=== PATIENT | male | born 1960 | race African-American/Black ===

== ENCOUNTER → 2019-08-15 | Outpatient (CLI) | payer MEDICARE ==
[~2019-08-15] MED LIST: IOHEXOL 180 MG/ML 10 ML VIAL. ONE; OXYC15TA PO; methylPREDNISolone ACETATE 40 MG/ML VIAL. ONE; methylPREDNISolone ACETATE 80 MG/ML VIAL. ONE
--- NOTE | 2019-08-15 13:21 | PAIN ---
DATE OF SERVICE: 08/15/2019 INITIAL CONSULTATION FOR PAIN CLINIC CHIEF COMPLAINT: Low back and right lower extremity pain. HISTORY OF PRESENT ILLNESS: This is a 59-year-old male who presents with history of pain in the low back, into the right hip and leg, mostly in the gluteus and thigh. The patient reports it has been going on for several years. He had physical therapy about 2-3 years ago, which was not significantly helpful and it has been basically putting up with the pain at work until he retired. The patient reports now the pain is becoming more noticeable, worse with walking, standing, changing positions, better with sitting or lying down. It generally does not awaken him from sleep at night, but can up to 3 times if he lies on his right side. The patient reports it does not affect his bowel or bladder control, does affect his ability to walk significantly but not using any assistive devices. He is favoring his right leg. The patient is taking oxycodone 15 mg once daily, which reports it does decrease the pain by about 50%, was able to perform his activities of daily living with much greater ease and comfort. The patient reports the pain is sharp and stabbing across the low back radiating and shooting into the right hip and lower extremity. The patient rates his disability rating from 0-10, 10 being at worst, is a 5 with family home responsibilities, 7 with recreation and social activity, occupation and sexual behavior, self-care and life support activities. The patient had MRI scan of the lumbar spine showing asymmetric disk bulges throughout the L2-L3, L3-L4, L4-L5 and L5-S1 levels. The L4-L5 and L5-S1 levels showing mild bilateral neural foraminal stenosis. L4-L5 and L5-S1 shows symmetric disk bulge with left paracentral disk extrusion to the level of the mid S1 vertebral body and facet hypertrophy resulting in at least moderate left lateral stenosis and mild left and moderate right neural foraminal stenosis. The patient reports no loss of function, but significant fatigability of the right lower extremity with ambulation. PAST MEDICAL HISTORY: Significant for hearing loss, cigarette smoking 1 pack a day for 40 years. PREVIOUS SURGERIES: Include cholecystectomy, kidney stone extractions, right knee ACL repair and skin grafts in the past. FAMILY HISTORY: Significant for cancers and heart disease. SOCIAL HISTORY: The patient does not drink alcohol, does smoke about 1 pack of cigarettes a day and has for 40 years. The patient reports he does not use any illegal, illicit or recreational drugs. He is currently retired from [employer] and lives locally in [place], [place]. CURRENT MEDICATIONS: Include only oxycodone once daily. ALLERGIES: The patient has the allergy to HYDROCODONE. REVIEW OF SYSTEMS: The patient's review of systems is positive for those items mentioned in history of present illness. All systems reviewed and otherwise negative. It is complete, full and well documented on the patient's chart. PHYSICAL EXAMINATION: VITAL SIGNS: The patient's blood pressure is 121/71, pulse 76, respirations 18, temperature 98.1 degrees Fahrenheit, height is 5 feet 9 inches, weight is 186 pounds. GENERAL: The patient is awake, alert, oriented, appropriate, very pleasant demeanor. HEENT: Shows normocephalic, atraumatic. Extraocular movements are intact and symmetrical. Oral cavity: Mucous membranes moist and pink. Dentition is intact. NECK: Shows anterior throat supple without palpable lymphadenopathy noted. Swallow reflex symmetrical. CHEST: Shows normal on inspection. Breath sounds clear to auscultation bilaterally. HEART: Shows S1, S2 clear. No murmurs auscultated. ABDOMEN: Soft, nontender, nondistended. No palpable organomegaly is noted. No rebound or guarding demonstrated. BACK: Shows spine grossly in the midline. Normal-appearing thoracic kyphosis and lumbar lordotic curvature. Lumbar paraspinous muscle shows symmetrical on inspection, on palpation shows some moderate tenderness diffusely bilaterally going diffusely without significant radiation. The patient's back shows good rotational motion both laterally as well as extension and flexion without significant difficulty. The patient shows no tenderness over the spinous processes, sacrum or sacroiliac regions. EXTREMITIES: The patient's lower extremities show deep tendon reflexes 2+ in the patellar and 1+ in tendo-calcaneus tendons. Motor exam is strong with 5/5 dorsiflexion, extension, quadriceps and hamstring flexion and symmetrical. Peripheral pulses are 1+ in posterior tibia. No peripheral edema is noted. Lower extremities are warm and dry to touch, equal in color and appearance. Straight leg raise noted to be mildly positive about 45 degrees on the right with some mild pain in the posterior gluteus and right posterior thigh. This is decreased with knee flexion. Left side is negative. Gaenslen's and Danish's maneuvers are negative bilaterally. The patient's skin shows warm and dry, good turgor. No edema. No sores, rashes or bruising throughout. The patient is able to stand, stand on his toes without significant difficulty or loss of balance, walks with a slight favoring gait, does appear to favor the right lower extremity, but only slightly, not using any assistive devices such as canes or walkers to ambulate. IMPRESSION: 1. This is a 59-year-old male with many year history of low back and right lower extremity pain in a radicular fashion. 2. MRI scan of lumbar spine as noted. 3. Cigarette smoking. PLAN: Options were discussed with the patient including conservative medical managements, continued physical therapies, interventional techniques. He would like to pursue interventional techniques. We discussed a lumbar epidural steroid injection using description as well as anatomical models to describe the procedure. Risks were then discussed including, but not limited to bleeding, infection, possibility of epidural hematoma, subsequent neurological compromise, dural puncture headaches, spinal cord and/or nerve damage, side effects of steroid medication and poor results regarding pain control. The patient understands and wished to proceed. The patient will return to clinic in approximately 2 weeks for followup. He was counseled on return appointment, activity level and side effects to be aware of. DIAGNOSES: Lumbar radiculopathy with lumbar degenerative disk disease and lumbar spinal stenosis. PROCEDURE: Lumbar epidural steroid injection, translaminar approach, L5-S1 level using C-arm fluoroscopic guidance under sterile prep and drape using local anesthetic. MEDICATION INJECTED: A total of 120 mg Depo-Medrol plus 10 mL of preservative-free normal saline and 2 mL of contrast. CONDITION AT DISCHARGE: Stable. The patient tolerated the procedure well, had no complications. SHOBHA WILLOUGHBY MD DR: VARGAS/theron JOB#: [id number] / [id number] MONIKA Foster MD
== END ==
LOC: PNCL 09:06
PROVIDERS: ATTEND Anesthesiology
DX: M51.16 Intervertebral disc disorders with radiculopathy, lumbar region (principal); Z87.891 Personal history of nicotine dependence; Z88.5 Allergy status to narcotic agent
CPT/HCPCS: 62323; J1030; J1040; Q9965

== ENCOUNTER → 2020-06-17 | Outpatient (CLI) | payer MEDICARE ==
[~2020-06-17] MED LIST changes: -IOHEXOL 180 MG/ML 10 ML VIAL. ONE; -OXYC15TA PO; +OXYC15TA3 PO; -methylPREDNISolone ACETATE 40 MG/ML VIAL. ONE; -methylPREDNISolone ACETATE 80 MG/ML VIAL. ONE
--- NOTE | 2020-06-17 09:57 | RAD ---
EXAMINATION: Magnetic resonance imaging (MRI) of the lumbar spine without contrast 06/17/2020 9:00 AM HISTORY: Lumbar radiculopathy TECHNIQUE: Multiplanar multi-weighted MRI of the lumbar spine was performed without intravenous contrast using the standard lumbar spine protocol. Contrast information: None administered. COMPARISON: None available. FINDINGS: There is straightening of the normal lumbar lordosis. No significant spondylolisthesis. There is moderate disc height loss at L5-S1 and mild disc height loss at L3-L4 and L4-L5 with disc desiccation. Modic type I endplate degenerative changes are identified at L4-L5 and to a lesser degree L5-S1. Rudimentary disc is identified at S1-S2. Conus medullaris terminates at L2. Distal spinal cord signal intensity is normal in all sequences. There is mild to moderate anterior marginal osteophytosis. 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 Kidneys are normal in appearance. No suspicious intraperitoneal abnormality is identified. Visualized portions of the sacrum appear intact. L1-L2: There is a mild circumferential disc bulge. No significant facet arthropathy. No neuroforaminal or spinal canal stenosis. L2-L3: There is mild disc bulge. No significant facet arthropathy. No neuroforaminal or spinal canal stenosis. L3-L4: Mild disc bulge. Mild facet arthropathy. Mild left neural foraminal stenosis. No spinal canal stenosis. L4-L5: There is a moderate circumferential disc bulge. There is moderate right and mild left facet arthropathy. Moderate bilateral neuroforaminal stenosis. There is a left central annular fissure. No significant spinal canal stenosis. L5-S1: There is a moderate circumferential disc bulge with bilateral foraminal disc protrusions. Moderate facet arthropathy. Severe right and moderate to severe left neuroforaminal stenosis. No spinal canal stenosis. IMPRESSION: Mild degenerative changes of lumbar spine, as described in detail above. Electronically signed by: Becki Krishnan MD (06/17/2020 9:54 AM) [id number]
== END ==
LOC: MRI 09:22
PROVIDERS: ATTEND Family Medicine
DX: M47.27 Other spondylosis with radiculopathy, lumbosacral region (principal); M40.46 Postural lordosis, lumbar region; M48.07 Spinal stenosis, lumbosacral region; M25.78 Osteophyte, vertebrae
CPT/HCPCS: 72148

== ENCOUNTER → 2022-01-06 | Outpatient (CLI) | payer MEDICARE ==
--- NOTE | 2022-01-07 14:08 | RAD ---
Bilateral lower extremity arterial ultrasound History: : 61 years Male Reason: CLAUDICATION, peripheral arterial disease Findings: Multiple grayscale, color, and duplex spectral analysis sonographic images were acquired of the lower extremity arteries. COMPARISON: None. FINDINGS: Grayscale evaluation of the femoropopliteal segments demonstrate scattered calcified atherosclerotic plaque. Color Doppler demonstrate patent arterial segments from the FLOOR NURSE to dorsalis pedis and posterior tibia l arteries except for the proximal and mid segments of the left the SFA which appear occluded. Waveforms: Right LE: Triphasic throughout Left LE: Triphasic proximally then monophasic to distal to the occlusion in the SFA Velocities: (in cm/sec) Diminished velocity of the 38 cm/s in the left posterior tibial, 26 and the left peroneal and the 32 cm/s and the left anterior tibial arteries seen. Impression: 1. 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 2. No evidence of high-grade stenosis in right lower extremity arteries. Electronically signed by: Humberto Handy MD (01/07/2022 10:15 AM) [id number]
== END ==
LOC: US 15:58
PROVIDERS: ATTEND Family Medicine
DX: I70.202 Unspecified atherosclerosis of native arteries of extremities, left leg (principal)
CPT/HCPCS: 93925